=== PATIENT | female | born 1980 | race Hispanic/Latino ===

== ENCOUNTER 2023-11-09 10:29 | Emergency (ER) | payer BC ==
[~2023-11-09] VITALS: Ht 162.6 cm; Wt 68.0 kg
[2023-11-09 12:27] LABS: APPEARANCE,URINE CLEAR (CLEAR); BILIRUBIN,URINE NEGATIVE (NEGATIVE); COLOR,URINE LIGHT-YELLOW (YELLOW); GLUCOSE, URINE (UA) NEGATIVE (NEGATIVE); KETONES,URINE NEGATIVE (NEGATIVE); LEUKOCYTE ESTERASE ,URINE 250 Leu/uL (NEGATIVE); NITRATE,URINE NEGATIVE (NEGATIVE); OCCULT BLOOD,URINE NEGATIVE (NEGATIVE); PROTEIN,URINE NEGATIVE (NEGATIVE); UROBILINOGEN,URINE 0.2 mg/dL (0.2-1.0)
[2023-11-09 12:44] LABS: ADD UA MICROSCOPIC YES
[2023-11-09 12:48] LABS: BACTERIA,URINE FEW /HPF (None Seen); MUCUS,URINE RARE LPF (None Seen); SQUAMOUS EPITHELIAL CELL,UR FEW /HPF (0-2)
[2023-11-09] MEDS ORDERED: FLUC200T PO (12:59)
[2023-11-09] MEDS ORDERED: NITR100C PO (12:59)
[2023-11-09 13:20] VITALS: BP 118/66; PULSE 69; RESP 16; O2SAT 100
== END 2023-11-09 13:28 | disposition home or self-care (01) ==
LOC: EDH 10:29
DX: N30.00 Acute cystitis without hematuria (principal); B37.31 Acute candidiasis of vulva and vagina; Z88.6 Allergy status to analgesic agent
CPT/HCPCS: 81001; 87077; 87088; 87186

== ENCOUNTER 2024-03-02 09:49 | Emergency (ER) | payer BC ==
[~2024-03-02] VITALS: Ht 162.6 cm; Wt 63.5 kg
[~2024-03-02 09:49] MED LIST: FLUC200T PO; LACT20PA6 PO; NITR100C PO
[2024-03-02] MEDS: ACETAMINOPHEN 500 MG TABLET PO ONE (11:50)
[2024-03-02 12:02] LABS: INFLUENZA TYPE A Negative For Type A (NEGATIVE); INFLUENZA TYPE B Negative For Type B (NEGATIVE)
[2024-03-02 12:16] LABS: COVID19 (SARS ANTIGEN RAPID) POSITIVE FOR SARS AG (NEGATIVE)
[2024-03-02] MEDS ORDERED: AZIT250T9 PO (12:44)
[2024-03-02] MEDS ORDERED: ALBUHFA IH (12:44)
[2024-03-02] MEDS ORDERED: BENZ-39 PO (12:44)
[2024-03-02] MEDS ORDERED: METH4TAB3 PO (12:44)
[2024-03-02 12:48] VITALS: TEMP 98.9
[2024-03-02 12:49] VITALS: BP 106/64; PULSE 94; RESP 16; O2SAT 100
== END 2024-03-02 12:50 | disposition home or self-care (01) ==
LOC: EDH 09:49
DX: U07.1 COVID-19 (principal); E11.9 Type 2 diabetes mellitus without complications; Z88.6 Allergy status to analgesic agent; Z79.899 Other long term (current) drug therapy; Z98.890 Other specified postprocedural states
CPT/HCPCS: 71045; 87426; 87804

== ENCOUNTER 2024-04-15 18:10 | Inpatient (IN) | payer BC ==
[~2024-04-15] VITALS: Ht 162.6 cm; Wt 65.8 kg
[~2024-04-15 18:10] MED LIST changes: +ALBUHFA IH; +AZIT250T9 PO; +BENZ-39 PO; +METH4TAB3 PO
[2024-04-15 18:36] LABS: APPEARANCE,URINE CLOUDY (CLEAR); BILIRUBIN,URINE NEGATIVE (NEGATIVE); COLOR,URINE YELLOW (YELLOW); GLUCOSE, URINE (UA) NEGATIVE (NEGATIVE); KETONES,URINE 5 mg/dL (NEGATIVE); LEUKOCYTE ESTERASE ,URINE NEGATIVE Leu/uL (NEGATIVE); NITRATE,URINE NEGATIVE (NEGATIVE); OCCULT BLOOD,URINE LARGE (NEGATIVE); PH,URINE 5.5 (5.0-8.0); PROTEIN,URINE 30 mg/dL (NEGATIVE); UROBILINOGEN,URINE 0.2 mg/dL (0.2-1.0)
[2024-04-15 18:39] LABS: ADD UA MICROSCOPIC YES
[2024-04-15 18:41] LABS: MUCUS,URINE RARE LPF (None Seen); RBC,URINE TNTC /HPF (0-1); SQUAMOUS EPITHELIAL CELL,UR RARE /HPF (0-2)
[2024-04-15 18:44] LABS: BASOPHILS # (AUTO) 0.04 K/uL (0.00-0.20); BASOPHILS % (AUTO) 0.5 % (0.0-5.0); EOSINOPHILS # (AUTO) 0.34 K/uL (0.00-0.70); EOSINOPHILS % (AUTO) 4.3 % (0.0-8.0); HEMATOCRIT 23.7 % (36-48); IMMATURE GRANULOCYTE ABSOLUTE 0.02 K/uL (0-1); LYMPHOCYTES # (AUTO) 1.2 K/uL (1.0-4.8); LYMPHOCYTES % (AUTO) 15.6 % (21.0-51.0); MEAN CORPUSCULAR HEMOGLOBIN 20.8 pg (27.0-33.0); MEAN CORPUSCULAR HGB CONC 29.5 g/dL (32.0-36.0); MEAN CORPUSCULAR VOLUME 70.3 fL (79-99); MONOCYTES # (AUTO) 0.4 K/uL (0.1-1.0); MONOCYTES % (AUTO) 5.1 % (3.0-13.0); NEUTROPHILS # (AUTO) 5.9 K/uL (1.8-7.7); NEUTROPHILS % (AUTO) 74.2 % (40.0-77.0); PLATELET COUNT (AUTO) 406 K/uL (130-400); RED BLOOD CELL COUNT(AUTO) 3.37 MIL/uL (4.00-5.50); RED CELL DISTRIBUTION WIDTH 17.8 % (11.0-15.5); WHITE BLOOD COUNT (AUTO) 7.9 K/uL (4.8-10.8)
[2024-04-15 18:56] LABS: CREATININE 0.7 mg/dL (0.5-1.0); POTASSIUM 3.6 mmol/L (3.5-5.1)
[2024-04-15 19:05] LABS: AMPHET/METH SCREEN,URINE NEGATIVE (NEGATIVE); BARBITURATE SCREEN, URINE NEGATIVE (NEGATIVE); BENZODIAZEPINES SCREEN,URINE NEGATIVE (NEGATIVE); CANNABINOID SCREEN,URINE NEGATIVE (NEGATIVE); COCAINE SCREEN,URINE POSITIVE (NEGATIVE); OPIATE SCREEN,URINE NEGATIVE (NEGATIVE); PHENCYCLIDINE SCREEN,URINE NEGATIVE (NEGATIVE)
[2024-04-15] MEDS: DICYCLOMINE HCL 10 MG/5 ML ML PO ONE (19:17)
[2024-04-15] MEDS: MAG/ALUM/SIMETH 30 ML UDCUP PO ONE (19:17)
[2024-04-15 19:18] LABS: AMYLASE 61 U/L (25-115)
[2024-04-15] MEDS: LIDOCAINE HCL 2% VISCOUS 15 ML UDCUP PO ONE (19:18)
[2024-04-15] MEDS: LACTATED RINGERS 1000ML 1,000 ML IV ONE (19:18)
[2024-04-15] MEDS: ONDANSETRON 4MG INJ IVP ONE (19:18)
[2024-04-15] MEDS: ZIPRASIDONE MESYLATE 20 MG/VIAL IM ONE (20:24)
[2024-04-15 21:37] VITALS: O2SAT 98
[2024-04-15] MEDS ORDERED: 0.9%NACL 50ML IV SCH (22:05)
[2024-04-15] MEDS ORDERED: hydrALAZine 20MG/ML VIAL IV PRN (22:30)
[2024-04-15] MEDS ORDERED: DEXTROSE 50%-WATER 50 ML DISP.SYRIN IV PRN (22:30)
[2024-04-15] MEDS ORDERED: TEMAZEPAM 15 MG CAPSULE PO PRN (22:30)
[2024-04-15] MEDS ORDERED: GLUCAGON 1MG KIT 1 MG ML IM PRN (22:30)
[2024-04-15] MEDS ORDERED: doCUSate SODIUM 100 MG CAP PO PRN (22:30)
[2024-04-15] MEDS ORDERED: POTASSIUM CHLORIDE 10% ELIXIR 20 MEQ/15 ML UDCUP PO PRN (22:30)
[2024-04-15] MEDS ORDERED: POTASSIUM CHLORIDE 20MEQ/100ML 100 ML IV PRN (22:30)
[2024-04-15] MEDS ORDERED: LACTULOSE 20 GM/30 ML UDCUP PO PRN (22:30)
[2024-04-15] MEDS ORDERED: ONDANSETRON 4MG INJ IVP PRN (22:30)
[2024-04-15] MEDS ORDERED: acetaMINOPHEN 650 MG SUPPOSITORY RC PRN (22:30)
[2024-04-15 23:15] VITALS: BP 91/47; PULSE 68; RESP 16; TEMP 98.4
[2024-04-16] MEDS: LACTATED RINGERS 1000ML 1,000 ML IV SCH (00:15)
[2024-04-16] MEDS: ZOSYN 3.375GM +NS 50ML IVPB SCH (00:15)
[2024-04-16 04:00] VITALS: BP 98/58; PULSE 64; RESP 20; TEMP 98.4
[2024-04-16 05:29] LABS: BASOPHILS # (AUTO) 0.04 K/uL (0.00-0.20); BASOPHILS % (AUTO) 0.7 % (0.0-5.0); EOSINOPHILS # (AUTO) 0.41 K/uL (0.00-0.70); EOSINOPHILS % (AUTO) 7.1 % (0.0-8.0); HEMATOCRIT 24.7 % (36-48); IMMATURE GRANULOCYTE ABSOLUTE 0.01 K/uL (0-1); LYMPHOCYTES # (AUTO) 1.8 K/uL (1.0-4.8); LYMPHOCYTES % (AUTO) 30.9 % (21.0-51.0); MEAN CORPUSCULAR HEMOGLOBIN 22.4 pg (27.0-33.0); MEAN CORPUSCULAR HGB CONC 30.4 g/dL (32.0-36.0); MEAN CORPUSCULAR VOLUME 73.7 fL (79-99); MONOCYTES # (AUTO) 0.6 K/uL (0.1-1.0); MONOCYTES % (AUTO) 9.5 % (3.0-13.0); NEUTROPHILS % (AUTO) 51.6 % (40.0-77.0); PLATELET COUNT (AUTO) 348 K/uL (130-400); RED BLOOD CELL COUNT(AUTO) 3.35 MIL/uL (4.00-5.50); RED CELL DISTRIBUTION WIDTH 18.8 % (11.0-15.5); WHITE BLOOD COUNT (AUTO) 5.8 K/uL (4.8-10.8)
[2024-04-16 05:44] LABS: CREATININE 0.7 mg/dL (0.5-1.0); MAGNESIUM 1.9 mg/dL (1.80-2.40); PHOSPHORUS 4.4 mg/dL (2.5-4.9); POTASSIUM 3.5 mmol/L (3.5-5.1); THYROID STIMULATING HORMONE 0.3 uIU/mL (0.36-3.74)
[2024-04-16 06:01] LABS: HEMATOCRIT 23.9 % (36-48)
[2024-04-16] MEDS: INSULIN humuLIN R 100 UNIT/ML 3ML SQ SCH (06:22)
[2024-04-16] MEDS: KCL 20 MEQ ERTAB PO PRN (07:02)
[2024-04-16] MEDS: MAGNESIUM 2GM PREMIX 50ML 50 ML IV PRN (07:02)
[2024-04-16 08:00] VITALS: BP 96/71; PULSE 62; RESP 19; TEMP 98
[2024-04-16] MEDS: PANTOPRAZOLE 40 MG/VIAL IVP SCH (08:15)
[2024-04-16] MEDS: acetaMINOPHEN 325 MG TAB PO PRN (08:15)
[2024-04-16] MEDS ORDERED: PANTOPRAZOLE 40 MG TAB DR PO SCH (09:00)
[2024-04-16 12:00] VITALS: BP 100/60; PULSE 70; RESP 19; TEMP 98.2
[2024-04-16 16:00] VITALS: BP 104/67; PULSE 77; RESP 19; TEMP 98.1
[2024-04-16 16:00] LABS: BASOPHILS # (AUTO) 0.05 K/uL (0.00-0.20); BASOPHILS % (AUTO) 0.9 % (0.0-5.0); EOSINOPHILS # (AUTO) 0.37 K/uL (0.00-0.70); EOSINOPHILS % (AUTO) 6.3 % (0.0-8.0); HEMATOCRIT 27.1 % (36-48); IMMATURE GRANULOCYTE ABSOLUTE 0.01 K/uL (0-1); LYMPHOCYTES # (AUTO) 1.6 K/uL (1.0-4.8); LYMPHOCYTES % (AUTO) 26.5 % (21.0-51.0); MEAN CORPUSCULAR HGB CONC 29.2 g/dL (32.0-36.0); MEAN CORPUSCULAR VOLUME 75.5 fL (79-99); MONOCYTES # (AUTO) 0.5 K/uL (0.1-1.0); MONOCYTES % (AUTO) 8.4 % (3.0-13.0); NEUTROPHILS # (AUTO) 3.4 K/uL (1.8-7.7); NEUTROPHILS % (AUTO) 57.7 % (40.0-77.0); PLATELET COUNT (AUTO) 366 K/uL (130-400); RED BLOOD CELL COUNT(AUTO) 3.59 MIL/uL (4.00-5.50); RED CELL DISTRIBUTION WIDTH 18.8 % (11.0-15.5); WHITE BLOOD COUNT (AUTO) 5.9 K/uL (4.8-10.8)
[2024-04-16 16:13] LABS: HEMOGLOBIN A1C 5.3 % (4.0-6.0)
[2024-04-16 16:15] LABS: PHOSPHORUS 4.1 mg/dL (2.5-4.9)
[2024-04-16] MEDS ORDERED: hydroMORPHone 0.5 MG SYG (0.5MG/0.5ML) IVP SCH (19:00)
== END 2024-04-16 21:10 | disposition left against medical advice (07) | DRG 812 ==
LOC: EDH 18:10 → EDHIP 21:51 → 3DH 23:15
PROVIDERS: ADMIT Internal Medicine; ATTEND Internal Medicine
PROC: 30233N1 Transfusion of Nonautologous Red Blood Cells into Peripheral Vein, Percutaneous Approach (ICD-10-PCS; principal; 2024-04-15)
DX: D64.9 Anemia, unspecified (principal); N39.0 Urinary tract infection, site not specified; E86.0 Dehydration; N92.0 Excessive and frequent menstruation with regular cycle; F14.10 Cocaine abuse, uncomplicated; E66.01 Morbid (severe) obesity due to excess calories; F31.9 Bipolar disorder, unspecified; F90.9 Attention-deficit hyperactivity disorder, unspecified type; D75.839 Thrombocytosis, unspecified; Z68.24 Body mass index [BMI] 24.0-24.9, adult; Z53.29 Procedure and treatment not carried out because of patient's decision for other reasons; Z98.84 Bariatric surgery status; Z98.891 History of uterine scar from previous surgery
CPT/HCPCS: 36415; 74018; 80048; 80305; 81001; 82150; 82270; 82948; 83036; 83690; 83735; 84100; 84443; 84484; 84703; 85014; 85018; 85025; 86850; 86900; 86901; 86923; 87086; 93306; 93356; G0378; J2405; J2470; J2543; J3475; J3486; P9016

== ENCOUNTER 2024-09-30 09:23 | Emergency (ER) | payer BC ==
[~2024-09-30] VITALS: Ht 162.6 cm; Wt 63.5 kg
--- NOTE | 2024-09-30 09:39 | ERN ---
General Chief Complaint: Nausea,Vomiting,Diarrhea Stated Complaint: VOMITING Time Seen by MD: 09:25 Source: patient History of Present Illness Initial Comments PATIENT IS A 44-YEAR-OLD FEMALE COMING IN TO BE EVALUATED FOR GENERALIZED BODY WEAKNESS. PATIENT DOES HAVE A HISTORY OF ANEMIA AND FREQUENTLY PRESENTS WITH LOW HEMOGLOBIN. PATIENT STATES THAT LAST TIME SHE WAS SEEN IN THE ER SHE HAS A HEMOGLOBIN 5.5 RECEIVED A BLOOD TRANSFUSION AND SOME IRON TRANSFUSION. Allergies: Coded Allergies: ibuprofen (Unverified Allergy, Unknown, 11/09/23) Home Meds No Active Prescriptions or Reported Meds Past Medical History Past Medical History: Bipolar Medical History Other: ADD Past Surgical History: Surgical History Other: GASTRIC BYPASS Female( History) History: Not Applicable ROS Dictation CONSTITUTIONAL: NO CHILLS, NO FEVER, NO WEAKNESS, NO DIAPHORESIS, NO MALAISE. HEAD/FACE: NO SIGNS OF TRAUMA. EENT: NO EYE PAIN, NO BLURRED VISION, NO TEARING, NO DOUBLE VISION, NO EAR PAIN, NO EAR DISCHARGE, NO NOSE PAIN, NO NASAL CONGESTION, NO THROAT PAIN, NO THROAT SWELLING, NO MOUTH PAIN. RESPIRATORY: NO COUGH, NO ORTHOPNEA, NO SOB, NO STRIDOR, NO WHEEZING. CARDIOVASCULAR: NO CHEST PAIN, NO EDEMA, NO PALPITATIONS, NO SYNCOPE. GASTROINTESTINAL/ABDOMINAL: NO ABDOMINAL PAIN, NO CONSTIPATION, NO DIARRHEA, NO NAUSEA, NO VOMITING. GENITOURINARY: NO ABNORMAL DISCHARGE, NO DYSURIA, NO FREQUENT URINATION, NO HEMATURIA. NO COMPLAINTS OF PAIN IN THE GENITALS. MUSCULOSKELETAL: NO BACK PAIN, NO GOUT, NO JOINT PAIN, NO JOINT SWELLING, NO MUSCLE PAIN, NO MUSCLE STIFFNESS, NO NECK PAIN. INTEGUMENTARY: NO CHANGE IN COLOR, NO CHANGE IN HAIR/NAILS, NO DRYNESS, NO LESION, NO LUMPS, NO RASH. NEUROLOGICAL/PSYCH: NO ANXIETY, NOT DEPRESSED, NO EMOTIONAL PROBLEM, NO HEADACHE, NO NUMBNESS, NO PRE-EXISTING DEFICIT, NO HISTORY OF SEIZURES, NO TREMORS, NO WEAKNESS. HEMATOLOGIC/LYMPHATIC: NOT ANEMIC, NO HISTORY OF BLOOD CLOTS, NO APPARENT BLEEDING, NO BRUISING, GLANDS NOT SWOLLEN. ALL SYSTEMS NEGATIVE, EXCEPT NOTED. Physical Exam Physical Exam Dictation VITAL SIGNS: REVIEWED. GENERAL APPEARANCE: ALERT, ORIENTED X3, NO ACUTE DISTRESS, OBESE. HEAD AND FACE: NON-TRAUMATIC. EYES: PERRL, PINK CONJUNCTIVAS, EYELID NO TRAUMA, ANTERIOR CHAMBER CLEAR. EARS: PINNAS INTACT AND NO SIGNS OF TRAUMA OR ERYTHEMA. EAR CANALS CLEAR AND NO DISCHARGE. TMS NO ERYTHEMA. NOSE: NO DISCHARGE, NO BLEEDING. OROPHARYNX: MOUTH NORMAL, TEETH NO CARIES, TONGUE PINK. PHARYNX CLEAR, NO ERYTHEMA. TONSILS NO EXUDATES, NO ABSCESSES NOTED. MUCOUS MEMBRANE MOIST. NECK: SUPPLE, NON-TENDER, NO THYROMEGALY, NO MASSES, NO JVD, NO BRUITS. BREAST: DEFERRED. CHEST: NO TENDERNESS, NO CREPITUS, NO PARADOXICAL MOVEMENT, NO RETRACTIONS. LUNGS: CLEAR, WELL-VENTILATED, SYMMETRIC, NO RALES, NO WHEEZING, NO RHONCHI, NO STRIDOR, GOOD BREATH SOUNDS BILATERALLY. HEART: REGULAR RATE, REGULAR RHYTHM, NO MURMUR, NO GALLOPS. VASCULAR: NO PERIPHERAL EDEMA. ABDOMEN: SOFT, POSITIVE BOWEL SOUNDS, NONDISTENDED, NO GUARDING, NONTENDER, NO REBOUND, NO MASSES NO HEPATOMEGALY, NO SPLENOMEGALY, NO SZYMANSKI'S SIGN, NO HERNIAS. RECTAL: DEFERRED. GENITAL: DEFERRED. NEUROLOGICAL: NORMAL SPEECH, GROSS MOTOR FUNCTION INTACT, GROSS SENSORY FUNCTION INTACT. MUSCULOSKELETAL: NECK NONTENDER, FULL RANGE OF MOTION, BACK NONTENDER, FULL RANGE OF MOTION. EXTREMITIES: NONTENDER, FULL RANGE OF MOTION. SKIN: COLOR PINK, DRY, NO TURGOR, NO RASH, NO LACERATIONS, NO ABRASIONS, NO CONTUSIONS. LYMPHATICS: DEFERRED. Results Laboratory and Microbiology Lab and Micro Result Laboratory Tests Test 09/30/24 09:53 White Blood Count 7.1 K/uL (4.8-10.8) Red Blood Count 4.40 MIL/uL (4.00-5.50) Hemoglobin 12.2 g/dL (12.0-16.0) Hematocrit 38.4 % (36-48) Mean Corpuscular Volume 87.3 fL (79-99) Mean Corpuscular Hemoglobin 27.7 pg (27.0-33.0) Mean Corpuscular Hemoglobin Concent 31.8 g/dL (32.0-36.0) L Red Cell Distribution Width 17.3 % (11.0-15.5) H Platelet Count 347 K/uL (130-400) Mean Platelet Volume 9.9 fL (7.5-10.5) Nucleated Red Blood Cells 0.0 % (0.0-0.19) Sodium Level 142 mmol/L (136-145) Potassium Level 4.0 mmol/L (3.5-5.1) Chloride Level 107 mmol/L (101-111) Carbon Dioxide Level 31 mmol/L (21-32) Blood Urea Nitrogen 7 mg/dL (7-18) Creatinine 1.0 mg/dL (0.5-1.0) Glomerular Filtration Rate Calc 71 mL/min (>90) Random Glucose 84 mg/dL (70-105) Total Calcium 8.4 mg/dL (8.5-10.1) L Labs Reviewed?: Yes MDM MDM: DIFFERENTIAL DIAGNOSIS: WEAKNESS, DEHYDRATION, ANEMIA, PATIENT IS A 44-YEAR-OLD FEMALE COMING IN TO BE EVALUATED FOR WEAKNESS. PATIENT STATES THAT SHE HAS BEEN WEAK FOR ABOUT TWO WEEKS. SHE STATES THAT SHE DOES HAVE A HISTORY OF ANEMIA IN HIS CONCERNED SHE MIGHT BE ANEMIC. LABORATORY WO RKUP NEGATIVE FOR ACUTE FINDINGS. PATIENT WAS HYDRATED WITH IV FLUIDS THAT SHE STATED SHE FELT A LITTLE DEHYDRATED. PATIENT WILL BE DISCHARGED IN STABLE CONDITION. ED Course Orders Procedure Category Date Status Time Cbc Without LAB 09/30/24 Complete Differential 09:27 Basic Metabolic Panel LAB 09/30/24 Complete 09:27 Type And Screen BBK 09/30/24 Complete 09:27 0.9%Nacl 1000ml (Ns PHA 09/30/24 Complete 1000ml) 12:00 Current Medications Medications (Trade) Dose Ordered Sig/Rob Route PRN Reason Start Time Stop Time Status Last Admin Dose Admin Sodium Chloride 1,000 ml @ 0 mls/hr ONCE ONCE IV 09/30/24 12:00 09/30/24 12:01 DC 09/30/24 11:49 Vital Signs Date Time Temp Pulse Resp B/P (MAP) Pulse Ox O2 Delivery O2 Flow Rate FiO2 09/30/24 09:24 98.2 79 16 124/83 100 Room Air DX & DISP Disposition: Discharge Departure Impression: Primary Impression: Dehydration Condition: Stable Scripts No Active Prescriptions or Reported Meds Additional Instructions: FOLLOW-UP WITH PRIMARY CARE PROVIDER IN 1 TO 2 DAYS. TAKE MEDICATIONS DIREC RHODA HERE IN THE EMERGENCY ROOM. OKAY TO CONTINUE HOME MEDICATIONS UNLESS OTHERWISE DISCUSSED DURING YOUR VISIT IN THE EMERGENCY ROOM TODAY. RETURN TO YOUR NEAREST EMERGENCY ROOM IF SYMPTOMS WORSEN OR IF THERE IS NO IMPROVEMENT. CALL 911 IF YOU NEED IMMEDIATE ASSISTANCE. TAKE TYLENOL [id number] NEEDED AND IF NO CONTRAINDICATIONS ARE PRESENT. INCREASE ORAL HYDRATION. A WOUND CULTURE OR URINE CULTURE WAS ORDERED HERE IN THE EMERGENCY ROOM DEPARTMENT PLEASE FOLLOW-UP WITH PRIMARY CARE PROVIDER AND ADVISE THEM TO GET REPEAT PORTS FROM OUR FACILITY. IF YOU HAD ANY JUNE WRAP/SPLINTS THAT WERE APPLIED HERE, PLEASE DO NOT REMOVE THEM UNTIL YOU SEE YOUR PRIMARY CARE OR SPECIALTY. REFERRALS: Referrals: AMIRA PARDO MD (PCP) Time of Disposition: 12:16 FLORIN COTTON MD Sep 30, 2024 09:39
[2024-09-30 10:15] LABS: HEMATOCRIT 38.4 % (36-48); MEAN CORPUSCULAR HEMOGLOBIN 27.7 pg (27.0-33.0); MEAN CORPUSCULAR HGB CONC 31.8 g/dL (32.0-36.0); MEAN CORPUSCULAR VOLUME 87.3 fL (79-99); RED BLOOD CELL COUNT(AUTO) 4.4 MIL/uL (4.00-5.50); RED CELL DISTRIBUTION WIDTH 17.3 % (11.0-15.5); WHITE BLOOD COUNT (AUTO) 7.1 K/uL (4.8-10.8)
[2024-09-30] MEDS: 0.9%NACL 1000ML 1,000 ML IV ONE (11:49)
[2024-09-30 13:10] VITALS: BP 130/84; PULSE 75; RESP 20; TEMP 98; O2SAT 99
== END 2024-09-30 13:11 | disposition home or self-care (01) ==
LOC: EDH 09:23
DX: E86.0 Dehydration (principal); F31.9 Bipolar disorder, unspecified; Z88.6 Allergy status to analgesic agent; Z98.84 Bariatric surgery status; Z98.890 Other specified postprocedural states
CPT/HCPCS: 99283; 96360; 80048; 85027; 86850; 86900; 86901; 36415; J7030